=== PATIENT | male | born 1975 | race Two or more races ===

== ENCOUNTER 2017-11-04 16:14 | Emergency (ER) | payer BC ==
[~2017-11-04] VITALS: Ht 177.8 cm; Wt 86.2 kg
[2017-11-04 16:18] VITALS: BP 178/104
[2017-11-04] MEDS ORDERED: KETOROLAC TROMETH 60MG/2ML VIAL IM ONE (17:00)
== END 2017-11-04 17:40 | disposition home or self-care (01) ==
LOC: ER 16:14
DX: J32.9 Chronic sinusitis, unspecified (principal); F17.290 Nicotine dependence, other tobacco product, uncomplicated
CPT/HCPCS: 70450; 96372; 99284; J1885